=== PATIENT | female | born 1985 | race Caucasian/White ===

== ENCOUNTER 2020-12-19 13:05 | Emergency (ER) | payer MEDICAID, SELFPAY ==
--- NOTE | ~2020-12-19 | XR_ITS ---
EXAMINATION: XR CHEST CLINICAL INFORMATION: Fever, shortness of breath COMPARISON: Chest radiographs 11/12/2019 TECHNIQUE: Portable upright AP view of the chest was obtained. FINDINGS: The lungs are clear. The vascularity is normal. There is no pneumothorax, pleural reaction, airspace opacity, or effusion. The heart is normal in size. The hilar and mediastinal contours and bony structures are unremarkable. Again, there are surgical clips seen right medial subphrenic space. XR/XR chest 1V IMPRESSION: Unremarkable examination.
[2020-12-19 13:22] VITALS: BP 113/73; PULSE 92; RESP 16; TEMP 37.7; O2SAT 99; BMI 28.3
[2020-12-19] MEDS: Ibuprofen 600 MG TABLET PO (13:44)
[2020-12-19 15:12] LABS: Influenza A PCR NEGATIVE (Negative); Influenza B PCR NEGATIVE (Negative); Resp Syncy Virus RNA Qual PCR NEGATIVE (Negative); SARS COV2 PCR INHOUSE POSITIVE (Negative)
[2020-12-19 15:27] VITALS: TEMP 37.5
--- NOTE | 2020-12-19 15:35 | ED.HA ---
HPI - Headache General Chief Complaint: Headache Stated Complaint: covid symptoms Time Seen by Provider: 12/19/20 13:36 Source: patient Mode of arrival: ambulatory History of Present Illness HPI Narrative: 35-year-old female with a past medical history of migraines presenting to the ED complaining of a headache, productive cough, slight SOB and chest tightness, myalgias, and a low-grade fever x a few days. Admits to COVID-19 exposure 19 days ago, was tested for COVID-19 and negative. Also reports tested for COVID-19 last week and negative, however continued low-grade fevers so requesting COVID-19 testing today. Denies recent travel, LE edema, history of blood clots, smoking. MD elicited complaint: headache Related Data Previous Rx's Medication Instructions Recorded albuterol sulfate 2 puff INHALATION Q4-6H PRN #6.7 g 12/19/20 azithromycin See Rx Instructions .ROUTE 12/19/20 .COMPLEX #6 tab benzonatate [Tessalon Perles] 100 mg PO TID PRN #14 cap 12/19/20 Allergies Allergy/AdvReac Type Severity Reaction Status Date / Time nitrofurantoin Allergy Unknown ANGIOEDEMA Unverified 07/05/20 17:27 [From MACROBID] Penicillins [PENICILLINS] Allergy Unknown RASH Unverified 07/05/20 17:27 Review of Systems Review of Systems: Constitutional:No Fever, No Chills, No Fatigue, No Malaise ENT/Mouth: No Nasal Congestion, No Sinus Pain, No sore throat, No Rhinorrhea, No Swallowing Difficulty Cardiovascular: +Chest tightness, +SOB, No Edema, No Palpitations Respiratory: + Cough, + Sputum, No Wheezing Gastrointestinal: No Nausea, No Vomiting, No Diarrhea, No Constipation, No Abdominal pain Musculoskeletal: + Myalgias Skin: No Skin Lesions, No rash Neuro: + Weakness, + Headache Yes all other systems are reviewed and are negative PMFSH Past Medical History Attestation statement: The following information was validated with the patient. Medical History (Updated 12/19/20 @ 15:36 by BILLY Lepe) Liver infarct, right lobe Migraine Surgical History (Updated 12/19/20 @ 13:25 by Jameson Omalley) History of tubal ligation Social History Social History Advance Directives: No Advance Directives Information Provided: No Physical Exam Vital Signs: Vital Signs: Last Vital Signs Temp 99.5 F 12/19/20 15:27 Pulse 92 12/19/20 13:22 Resp 16 12/19/20 13:22 BP 113/73 12/19/20 13:22 Pulse Ox 99 12/19/20 13:22 Body Mass Index 28.3 Const: General: cooperative, healthy appearing and comfortable Orientation/consciousness: patient oriented x3 Limitations: no limitations HENMT: Head: Yes normal to inspection Ears: hearing grossly normal bilaterally General nose exam: Normal external nose present and Nasal discharge present Face and sinus: Yes normal facial exam Eyes: General: appearance normal, both eyes and all related structures EOM: EOMs intact bilaterally Neck: Neck: Yes normal visual inspection and Yes no meningeal signs Resp: Effort & Inspection: normal respiratory effort and no stridor Auscultation: clear to auscultation bilaterally, no rales, no rhonchi and no wheezes Cardio: Rate: regular rate Heart sounds: S1 normal heart sound present and S2 normal heart sound present Skin: Rashes: no rashes Wounds: no wounds Neuro: General: patient oriented x3 and no meningeal signs Gait exam (Neuro): Normal gait present Extrem: General: Yes normal to inspection MDM - Headache MDM Narrative Medical decision making narrative: On exam low-grade temp 100?, NAD/nontoxic appearing, lungs CTA. Concern for viral syndrome/COVID-19. Low concern for ACS/PE or pneumonia. Plan: CXR, COVID-19 Lab Data Labs: Lab Results 12/19/20 Range/Units 14:17 Coronavirus (PCR) POSITIVE A (Negative) Influenza Type A (PCR) NEGATIVE (Negative) Influenza Type B (PCR) NEGATIVE (Negative) RSV RNA Qual (PCR) NEGATIVE (Negative) Discharge Plan Discharge Clinical Impression: COVID-19 Patient Disposition: Home, Self-Care Instructions: COVID-19 (Coronavirus Disease 2019) (ED) Additional Instructions: You have COVID-19. Take Tylenol and Motrin at home for fever and body aches. Tessalon Perles are for cough. Azithromycin as antibiotic, take as prescribed Albuterol as inhaler is for shortness of breath/wheezing, take as needed If you develop constant worsening shortness of breath, constant worsening chest pain, fever unresolved with Tylenol or Motrin return to the ED immediately. Call your doctor to inform them of your results At this time you will be okay for discharge. Please plan for self quarantine for up to 10- 14 days. Do not expose yourself to others. You may not go to work. If testing does come back negative you may return to activities as long as you are no longer having any symptoms for at least 3 days. Please continue to follow cold instructions and wash your hands frequently. You may take Tylenol as directed on the bottle for pain or fever. CDC Guidelines for home isolation: - Stay away from others - WEAR A MASK if you are sick AND STAY HOME - Cover your mouth and nose with a tissue when you cough or sneeze. Dispose of tissues in a lined trash can and wash your hands immediately with soap and water for at least 20 seconds. If soap and water are not available, clean hands with alcohol-based hand turkey egg gatherer that contains at least 60% alcohol. - Clean your hands often with soap and water for at least 20 seconds - Avoid touching your eyes, nose and mouth with unwashed hands - Do not share dishes, drinking glasses, cups, eating utensils, towels, or bedding with other people in your home. After using these items, wash them thoroughly with soap and water or put in the electrical and instrument engineer. - Clean high-touch surfaces in your isolation area ( sick room and bathroom) every day; let a caregiver clean and disinfect high-touch surfaces in other areas of the home. Clean the area or item with soap and water or another detergent if it is dirty. Then, use a household disinfectant. - Limit contact with pets and animals: If you must care for a pet, wash your hands before and after interacting with them) Prescriptions: New albuterol sulfate 90 mcg/actuation HFA aerosol inhaler 2 puff inhalation Q4-6H PRN (Reason: shortness of breath or wheezing) Qty: 6.7 RF: 0 azithromycin 250 mg tablet See Rx Instructions .ROUTE .COMPLEX Qty: 6 RF: 0 benzonatate [Tessalon Perles] 100 mg capsule 100 mg PO TID PRN (Reason: cough) Qty: 14 RF: 0 Referrals: Layne Vargas MD [Primary Care Provider] - 2 days (CALL) Stand Alone Forms: Work/School Release
== END 2020-12-19 15:59 | disposition home or self-care (01) ==
PROVIDERS: Physician Assistant; Emergency Provider Emergency Medicine; PCP Family Medicine
DX: U07.1 COVID-19 (principal); R51.9 Headache, unspecified; Z79.899 Other long term (current) drug therapy
CPT/HCPCS: 0241U; 36415; 71045; 99282; 99283

== ENCOUNTER 2020-12-23 19:10 | Emergency (ER) | payer MEDICAID, SELFPAY ==
--- NOTE | ~2020-12-23 | XR_ITS ---
EXAMINATION: XR CHEST CLINICAL INFORMATION: Shortness of breath, Covid positive COMPARISON: 12/19/2020 TECHNIQUE: Frontal view of the chest was obtained. FINDINGS: No significant abnormality is noted involving the heart, lungs, mediastinum, bony thorax or soft tissues. Surgical clips noted under the right hemidiaphragm. XR/XR chest 1V IMPRESSION: No acute intrathoracic disease.
[2020-12-23 19:36] VITALS: BP 96/64; PULSE 72; RESP 18; TEMP 37.1; O2SAT 99; BMI 27.4
--- NOTE | 2020-12-23 19:43 | ED_ITS ---
HPI - General Adult General Chief complaint: General Medical Stated complaint: COVID + Time Seen by Provider: 12/23/20 19:16 Source: patient Mode of arrival: ambulatory Limitations: no limitations History of Present Illness HPI narrative: 35-year-old female here with multiple complaints. Tells me she was diagnosed with COVID December 19. She had x-ray done which is unremarkable. She was placed on azithromycin which she completed this morning. She is here today with continued shortness of breath with exertion, cough, subjective fevers, chills, body aches.. Taking Motrin and Tylenol with improvement in symptoms. No chest pain, leg swelling or pain. Tells me the symptoms are not worsened but persistent. Related Data Previous Rx's Medication Instructions Recorded albuterol sulfate 2 puff INHALATION Q4-6H PRN #6.7 g 12/19/20 azithromycin See Rx Instructions .ROUTE 12/19/20 .COMPLEX #6 tab benzonatate [Tessalon Perles] 100 mg PO TID PRN #14 cap 12/19/20 Allergies Allergy/AdvReac Type Severity Reaction Status Date / Time nitrofurantoin Allergy Unknown ANGIOEDEMA Unverified 07/05/20 17:27 [From MACROBID] Penicillins [PENICILLINS] Allergy Unknown RASH Unverified 07/05/20 17:27 Review of Systems Review of Systems: Yes all other systems are reviewed and are negative Constitutional: Constitutional: Reports no additional constitutional complaints, Denies body ache(s), Denies chills, Reports fever(s) (subjective ), Denies headache(s) and Denies weakness Comments: +body aches Eyes: Eyes: Reports no additional eye complaints and Denies change in vision ENT: Reports system reviewed and no additional complaints, except as documented, Denies dizziness, Denies headache(s), Denies nasal congestion, Den ies nasal discharge and Denies neck pain Cardiovascular: Cardiovascular: Reports no additional cardiovascular complaints, Denies chest pain, Denies leg edema and Reports dyspnea Respiratory: Respiratory: Reports no additional respiratory complaints, Reports cough and Reports dyspnea Gastrointestinal: Gastrointestinal: Reports no additional gastrointestinal complaints, Denies abdominal pain, Denies diarrhea, Denies nausea and Denies vomiting Genitourinary: Genitourinary: Reports no additional female genitourinary complaints and Denies urinary incontinence Musculoskeletal: Musculoskeletal: Reports no additional musculoskeletal complaints, Denies back pain, Denies arthralgias, Denies joint swelling, Denies neck pain, Denies numbness and Denies tingling Integumentary/Breasts: Skin/Breast: Reports system reviewed and no additional complaints, except as docu and Denies rash Neurologic: Reports system reviewed and no additional complaints, except as documented, Denies Abnormal speech present, Denies dizziness, Denies headache(s), Denies numbness, Denies tingling and Denies weakness PMFSH Past Medical History Attestation statement: The following information was validated with the patient. Source: old records reviewed and nursing notes reviewed Medical History Liver infarct, right lobe Migraine Surgical History History of tubal ligation Social History Social History Advance Directives: No Advance Directives Information Provided: Yes Physical Exam Vital Signs: Vital Signs: Last Vital Signs Temp 98.8 F 12/23/20 19:36 Pulse 72 12/23/20 19:36 Resp 18 12/23/20 19:36 BP 96/64 12/23/20 19:36 Pulse Ox 99 12/23/20 19:36 Body Mass Index 27.4 Const: General: cooperative, healthy appearing, comfortable and no acute distress Orientation/consciousness: patient oriented x3 Limitations: no limitations HENMT: Head: Yes normal to inspection Ears: hearing grossly normal bilaterally General nose exam: Normal external nose present Face and sinus: Yes normal facial exam Mouth: Normal oral and palatal mucosa present Throat: Yes posterior oropharynx normal Eyes: General: appearance normal, both eyes and all related structures Pupils: Equal, round and reactive pupils present Neck: Neck: Yes normal visual inspection Chest: Chest palpation & inspection: normal inspection of the chest Resp: Effort & Inspection: normal respiratory effort Auscultation: clear to auscultation bilaterally Cardio: Rate: regular rate Rhythm: regular rhythm Peripheral pulses: Peripheral pulses 2+ throughout GI: Inspection: Yes normal to inspection Palpation (GI): Soft to palpation and nontender Auscultation: normal bowel sounds Back/Spine/Pelvis: Thoracic/Lumbar Spine: thoracic and lumbar spine normal to inspection Skin: General skin exam: no rashes or lesions noted Neuro: General: patient oriented x3, no focal motor deficits and normal sensation to monofilament Cranial nerves: Yes Equal, round and reactive pupils present Cognition (Neuro): normal cognition Speech: No Abnormal speech present Gait exam (Neuro): Normal gait present Motor exam (neuro): 5/5 motor strength present throughout Extrem: General: Yes normal to inspection, Yes no pedal edema and Yes no calf tenderness Course Course Course Narrative: 35 yo female known COVID + here with persistent symptoms of SOB, cough, subjective fevers, body aches. Stable vital signs, well appearing. Will repeat chest x-ray. 0030-chest x-ray unremarkable. Recommended continuing supportive care at home. Reviewed worrisome signs and symptoms and when to return to the emergency department. Comfortable with discharge home Medical Decision Making Medical Records Medical records reviewed: Yes I reviewed the patient's medical records. Lab Data Lab results reviewed: Yes I reviewed the patient's lab results. Imaging Data Chest x-ray: Attestation: I personally reviewed and interpreted this imaging study as follows: Radiologist's impression: [address] [id number] ReportSigned Patient: Meron Prince#: [id number]: [id number]:[id number]/Sex: 35 / FADM Date: 12/23/20Loc: HO.EDAttending Dr: Ordering Physician: MANUEL MCCRAY NP Date of Service: 12/23/20 Procedure(s): XR chest 1V Accession Number(s): [id number] cc: MANUEL MCCRAY NP~ EXAMINATION: XR CHEST CLINICAL INFORMATION: Shortness of breath, Covid positive COMPARISON: 12/19/2020 TECHNIQUE: Frontal view of the chest was obtained. FINDINGS: No significant abnormality is noted involving the heart, lungs, mediastinum, bony thorax or soft tissues. Surgical clips noted under the right hemidiaphragm. XR/XR chest 1V IMPRESSION: No acute intrathoracic disease. Discharge Plan Discharge Clinical Impression: COVID-19 Patient Disposition: Home, Self-Care Instructions: COVID-19 (Coronavirus Disease 2019) (ED) Additional Instructions: Your x-ray today looks unremarkable. There is no signs of pneumonia. Continue your albuterol as needed Continue Motrin and Tylenol alternating Increase fluids, rest Return for worsening shortness of breath, chest pain as discussed. Consider buying a pulse oximeter and monitor her oxygen saturations at home. Return here for oxygen saturations less than 90%. Prescriptions: No Action albuterol sulfate 90 mcg/actuation HFA aerosol inhaler 2 puff inhalation Q4-6H PRN (Reason: shortness of breath or wheezing) Qty: 6.7 RF: 0 azithromycin 250 mg tablet See Rx Instructions .ROUTE .COMPLEX Qty: 6 RF: 0 benzonatate [Tessalon Perles] 100 mg capsule 100 mg PO TID PRN (Reason: cough) Qty: 14 RF: 0 Referrals: Arleth Taylor [Primary Care Provider] - 2 days Interventions: ED Discharge Assessment Last Done: 12/23/20 20:57 Discharge Date/Time: 12/23/20 20:58
== END 2020-12-23 20:58 | disposition home or self-care (01) ==
PROVIDERS: Emergency Provider Internal Medicine
DX: U07.1 COVID-19 (principal)
CPT/HCPCS: 71045; 99283

== ENCOUNTER 2020-12-28 15:20 | Outpatient (REF) | payer MEDICAID, SELFPAY | END 2020-12-28 15:21 | disposition home or self-care (01) | LOC: HO.LAB 15:20 | PROVIDERS: Visit Provider Internal Medicine | DX: Z20.822 Contact with and (suspected) exposure to COVID-19 (principal) | CPT/HCPCS: 36415; C9803; U0003; U0005 ==

== ENCOUNTER 2021-01-29 05:07 | Emergency (ER) | payer MEDICAID, SELFPAY ==
[2021-01-29 05:17] VITALS: BP 112/81; PULSE 67; RESP 16; TEMP 36.5; O2SAT 98; BMI 27.4
[2021-01-29 05:59] LABS: Basophils Percent Auto 0.2 % (0-2); Eosinophils Absolute Auto 0.1 X10*3/uL (0.0-0.4); Eosinophils Percent Auto 0.8 % (0-4); Hematocrit 38.4 % (37-47); Hemoglobin 12.4 g/dl (12.0-16.0); Imm Gran Abs Auto 0.02 X10*3/uL (0.00-0.03); Imm Gran Pct Auto 0.2 % (0.0-0.4); Lymphocytes Absolute Auto 2.5 X10*3/uL (1.2-4.9); Lymphocytes Percent Auto 29.4 % (20-40); Mean Corpuscular HGB Conc 32.3 g/dl (31.0-35.0); Mean Corpuscular Hemoglobin 28.9 pg (27.0-33.0); Mean Corpuscular Volume 89.5 fL (80-98); Mean Platelet Volume 10.8 fL (9.4-12.3); Monocytes Absolute Auto 0.7 X10*3/uL (0.1-1.2); Monocytes Percent Auto 7.8 % (2-11); Neutrophils Absolute Auto 5.2 X10*3/uL (2.0-8.3); Neutrophils Percent Auto 61.6 % (45-73); Platelet Count 180 X10*3/uL (160-400); Red Blood Count 4.29 X10*6/uL (4.20-5.50); Red Cell Distribution Width 13.6 % (11.0-16.0); White Blood Count 8.4 X10*3/uL (4.8-10.8)
[2021-01-29 06:00] LABS: MANUAL DIFF FLAG NO
[2021-01-29 06:01] LABS: Appearance Urine CLOUDY; Color Urine AMBER; Glucose Urine UA NEG (NEG); Leukocyte Esterase Urine 2+ (NEG); Nitrite Urine NEG (NEG); Specific Gravity - Urine >= 1.030 (1.005-1.025); UACC Culture Trigger YES; UPreg QC Valid YES; Urine Blood 3+ (NEG); Urine Ketones 5 MG/DL (NEG); Urine Pregnancy NEGATIVE (NEGATIVE); Urine Protein 2+ MG/DL (NEG-TRACE)
[2021-01-29 06:06] LABS: Bacteria Urine 2+ /LPF; RBC Urine 50-75 /HPF (0); Squamous Epithelial Cell Urine 3+ /LPF
--- NOTE | 2021-01-29 06:07 | PC.NURSE ---
20G IV access established in left AC. labs drawn and sent for analysis. Awaiting results. Urine specimen also collected and sent for analysis. Will continue to monitor. and primary RN aware.
--- NOTE | 2021-01-29 06:34 | ED.ABDPAIN ---
HPI - Abdominal Pain General Chief Complaint: Abdominal Pain Stated Complaint: ?UTI Time Seen by Provider: 01/29/21 06:17 Source: patient Mode of arrival: ambulatory Limitations: no limitations History of Present Illness HPI narrative: Patient developed dysuria, then developed hematuria with frequency and urgency. Patient has a past history of tubal ligation MD elicited complaint: abdominal pain Pertinent past history: kidney stones and past UTI Onset (ago): hour(s) Pain Consistency: intermittent Location: RLQ and L flank Severity: mild Quality: stabbing and burning Radiation: RLQ and L flank Exacerbating factors: nothing Relieving factors: nothing Related Data Previous Rx's Medication Instructions Recorded cephalexin 500 mg PO QID #40 cap 01/29/21 Allergies Allergy/AdvReac Type Severity Reaction Status Date / Time nitrofurantoin Allergy Unknown ANGIOEDEMA Verified 01/29/21 05:17 [From MACROBID] Penicillins [PENICILLINS] Allergy Unknown RASH Verified 01/29/21 05:17 Review of Systems Constitutional: Reports no additional constitutional complaints Eyes: Reports no additional eye complaints Denies dizziness Cardiovascular: Reports no additional cardiovascular complaints Respiratory: Reports as per HPI Gastrointestinal: Reports no additional gastrointestinal complaints Genitourinary: Reports no additional female genitourinary complaints Musculoskeletal: Reports no additional musculoskeletal complaints Skin/Breast: Denies rash Reports system reviewed and no additional complaints, except as documented, Denies dizziness and Denies Sensory deficit (Neuro) Psychiatric: Denies anxiety Physical Exam Vital Signs: Vital Signs: Last Vital Signs Temp 97.7 F 01/29/21 05:17 Pulse 67 01/29/21 05:17 Resp 16 01/29/21 05:17 BP 112/81 01/29/21 05:17 Pulse Ox 98 01/29/21 05:17 Body Mass Index 27.4 Const: General: healthy appearing Nutritional Appearance: average body habitus Orientation/consciousness: oriented to person and patient oriented x3 Limitations: no limitations HENMT: Head: Yes normal to inspection Ears: external ears normal General nose exam: Normal external nose present Mouth: Normal oral and palatal mucosa present and oropharynx normal Throat: Yes posterior oropharynx normal Eyes: General: appearance normal, both eyes and all related structures Neck: Other: supple Neck: Yes normal visual inspection Chest: Chest palpation & inspection: normal inspection of the chest Resp: Auscultation: clear to auscultation bilaterally Cardio: Jugular venous distension: no JVD Rate: regular rate Rhythm: regular rhythm Heart sounds: S1 normal heart sound present and S2 normal heart sound present GI: Other: patient with slight right lower abdominal pain Inspection: Yes normal to inspection Palpation (GI): Soft to palpation and No hepatosplenomegaly present Auscultation: normal bowel sounds Back/Spine/Pelvis: Other: Mild right CVAT Skin: General skin exam: no rashes or lesions noted Neuro: General: oriented to person and patient oriented x3 Cranial nerves: Yes CN's II-XII intact bilaterally Motor exam (neuro): 5/5 motor strength present throughout Sensory Exam: No Sensory deficit (Neuro) Extrem: General: Yes normal to inspection Psych: Appearance: grossly normal MDM - Abdominal Pain MDM Narrative Medical decision making narrative: history, physical, and labs mostly consistent with pyelonephritis. will dc on Keflex Lab Data Result diagrams: 01/29/21 05:51 01/29/21 06:16 Labs: Lab Results 01/29/21 01/29/21 01/29/21 Range/Units 05:47 05:47 05:51 WBC 8.4 (4.8-10.8) X10*3/uL RBC 4.29 (4.20-5.50) X10*6/uL Hgb 12.4 (12.0-16.0) g/dl Hct 38.4 (37-47) % MCV 89.5 (80-98) fL MCH 28.9 (27.0-33.0) pg MCHC 32.3 (31.0-35.0) g/dl RDW 13.6 (11.0-16.0) % Plt Count 180 (160-400) X10*3/uL MPV 10.8 (9.4-12.3) fL Immature Gran % (Auto) 0.2 (0.0-0.4) % Neut % (Auto) 61.6 (45-73) % Lymph % (Auto) 29.4 (20-40) % [facility] % (Auto) 7.8 (2-11) % Eos % (Auto) 0.8 (0-4) % Baso % (Auto) 0.2 (0-2) % Lymph # (Auto) 2.5 (1.2-4.9) X10*3/uL [facility] # (Auto) 0.7 (0.1-1.2) X10*3/uL Eos # (Auto) 0.1 (0.0-0.4) X10*3/uL Baso # (Auto) 0.0 (0.0-0.2) X10*3/uL Abs Immat Gran (auto) 0.02 (0.00-0.03) X10*3/uL Absolute Neuts (auto) 5.2 (2.0-8.3) X10*3/uL Absolute Nucleated RBC 0.000 (0.0-0.012) X10*3/uL Nucleated RBC % (auto) 0.0 (0.0-0.2) /100WBC Hold Blue Top Sodium (135-145) mmol/L Potassium (3.3-5.1) mmol/L Chloride (96-108) mmol/L Carbon Dioxide (22-29) mmol/L Anion Gap (12-20) BUN (9-16) mg/dL Creatinine (0.5-1.4) mg/dL Estim Creat Clear Calc Estimated GFR Random Glucose (60-115) mg/dL Calcium (8.4-10.2) mg/dL Total Bilirubin (0.0-1.0) mg/dL AST (5-31) U/L ALT (0-31) U/L Alkaline Phosphatase (39-117) U/L Total Protein (6.5-8.0) g/dL Albumin (3.5-5.0) g/dL Urine Color SORIN Urine Appearance CLOUDY Urine pH 6.0 (5.0-8.0) Ur Specific [place] >= 1.030 H (1.005-1.025) Urine Protein 2+ H (NEG-TRACE) MG/DL Urine Glucose (UA) NEG (NEG) MG/DL Urine Ketones 5 (NEG) MG/DL Urine Blood 3+ H (NEG) Urine Nitrite NEG (NEG) Ur Leukocyte Esterase 2+ H (NEG) Urine RBC 50-75 H (0) /HPF Urine WBC 76-150 H (0-4) /HPF Ur Squamous Epith Cells 3+ /LPF Urine Bacteria 2+ /LPF Urine Test NEGATIVE (NEGATIVE) 01/29/21 01/29/21 Range/Units 05:51 06:16 WBC (4.8-10.8) X10*3/uL RBC (4.20-5.50) X10*6/uL Hgb (12.0-16.0) g/dl Hct (37-47) % MCV (80-98) fL MCH (27.0-33.0) pg MCHC (31.0-35.0) g/dl RDW (11.0-16.0) % Plt Count (160-400) X10*3/uL MPV (9.4-12.3) fL Immature Gran % (Auto) (0.0-0.4) % Neut % (Auto) (45-73) % Lymph % (Auto) (20-40) % [facility] % (Auto) (2-11) % Eos % (Auto) (0-4) % Baso % (Auto) (0-2) % Lymph # (Auto) (1.2-4.9) X10*3/uL [facility] # (Auto) (0.1-1.2) X10*3/uL Eos # (Auto) (0.0-0.4) X10*3/uL Baso # (Auto) (0.0-0.2) X10*3/uL Abs Immat Gran (auto) (0.00-0.03) X10*3/uL Absolute Neuts (auto) (2.0-8.3) X10*3/uL Absolute Nucleated RBC (0.0-0.012) X10*3/uL Nucleated RBC % (auto) (0.0-0.2) /100WBC Hold Blue Top SEE NOTE Sodium 139 (135-145) mmol/L Potassium 3.8 (3.3-5.1) mmol/L Chloride 106 (96-108) mmol/L Carbon Dioxide 26 (22-29) mmol/L Anion Gap 11 L (12-20) BUN 12 (9-16) mg/dL Creatinine 0.73 (0.5-1.4) mg/dL Estim Creat Clear Calc 103.0 Estimated GFR > 60 Random Glucose 81 (60-115) mg/dL Calcium 8.4 (8.4-10.2) mg/dL Total Bilirubin 0.5 (0.0-1.0) mg/dL AST 18 (5-31) U/L ALT 10 (0-31) U/L Alkaline Phosphatase 63 (39-117) U/L Total Protein 6.1 L (6.5-8.0) g/dL Albumin 3.7 (3.5-5.0) g/dL Urine Color Urine Appearance Urine pH (5.0-8.0) Ur Specific [place] (1.005-1.025) Urine Protein (NEG-TRACE) MG/DL Urine Glucose (UA) (NEG) MG/DL Urine Ketones (NEG) MG/DL Urine Blood (NEG) Urine Nitrite (NEG) Ur Leukocyte Esterase (NEG) Urine RBC (0) /HPF Urine WBC (0-4) /HPF Ur Squamous Epith Cells /LPF Urine Bacteria /LPF Urine Test (NEGATIVE) Discharge Plan Discharge Clinical Impression: Pyelonephritis Patient Disposition: Home, Self-Care Instructions: Kidney Infection (ED) Additional Instructions: increase fluids, may take tylenol and motrin for pain Prescriptions: New cephalexin 500 mg capsule 500 mg PO QID Qty: 40 RF: 0 Referrals: Physician,Unknown [Primary Care Provider] - 2 days PMFSH Past Medical History Medical History Kidney stone Liver infarct, right lobe Migraine Surgical History History of tubal ligation Social History Social History Advance Directives: No
[2021-01-29] MEDS: 0.9 % Sodium Chloride 1,000 ML 200 ML IVCONT (06:42)
[2021-01-29] MEDS: cefTRIAXone sodium 1 GM in 0.9 % Sodium Chloride 50 ML IV (06:42)
[2021-01-29 06:45] LABS: Alanine Aminotransferase 10 U/L (0-31); Albumin Level 3.7 g/dL (3.5-5.0); Alkaline Phosphatase 63 U/L (39-117); Anion Gap 11 (12-20); Aspartate Amino Transferase 18 U/L (5-31); Bilirubin Total 0.5 mg/dL (0.0-1.0); Blood Urea Nitrogen 12 mg/dL (9-16); Calcium 8.4 mg/dL (8.4-10.2); Carbon Dioxide 26 mmol/L (22-29); Chloride 106 mmol/L (96-108); Estimated Glomerular Filt Rate > 60; Glucose Random 81 mg/dL (60-115); Potassium 3.8 mmol/L (3.3-5.1); Sodium 139 mmol/L (135-145); Total Protein 6.1 g/dL (6.5-8.0)
--- NOTE | 2021-01-29 08:03 | PC.NURSE ---
report taken from milton/chanelle rn pt here for uti s/s, medicated per emar w abx and ns. ambulated to bathroom w smooth steady gait, appears comfortable. wctm.
== END 2021-01-29 09:19 | disposition home or self-care (01) ==
PROVIDERS: Emergency Provider Emergency Medicine
DX: N12 Tubulo-interstitial nephritis, not specified as acute or chronic (principal); R10.31 Right lower quadrant pain; Z87.442 Personal history of urinary calculi; K76.3 Infarction of liver
CPT/HCPCS: 36415; 80053; 81001; 81003; 81025; 85025; 87086; 87088; 87186; 96361; 96365; 99284; J0696

== ENCOUNTER 2021-10-15 10:43 | Outpatient (REF) | payer MEDICAID, SELFPAY | END 2021-10-15 10:44 | disposition home or self-care (01) | LOC: HO.LAB 10:43 | PROVIDERS: Visit Provider Internal Medicine | DX: Z13.89 Encounter for screening for other disorder (principal) | CPT/HCPCS: C9803; U0003; U0005 ==

== ENCOUNTER 2022-10-08 10:22 | Emergency (ER) | payer OTHER, MEDICAID, SELFPAY ==
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
[2022-10-08 10:26] VITALS: BP 120/66; PULSE 70; RESP 18; TEMP 36.9; O2SAT 99; BMI 24.5
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
== END 2022-10-08 12:51 | disposition home or self-care (01) ==
PROVIDERS: Emergency Provider Student in an Organized Health Care Education/Training Program
DX: S13.4XXA Sprain of ligaments of cervical spine, initial encounter (principal); S29.012A Strain of muscle and tendon of back wall of thorax, initial encounter; V43.02XA Car driver injured in collision with other type car in nontraffic accident, initial encounter; Y93.89 Activity, other specified; Y92.481 Parking lot as the place of occurrence of the external cause; Y99.9 Unspecified external cause status
CPT/HCPCS: 72040; 72072; 99283